=== PATIENT | male | born 1965 | race Caucasian/White ===

== ENCOUNTER 2018-01-25 12:35 | Emergency (ER) ==
[2018-01-25 12:39] VITALS: BP 121/84; TEMP 98.1; BMI 30.1
[2018-01-25] MEDS ORDERED: DUONEB NEB STA (13:17)
[2018-01-25] MEDS ORDERED: TUSSIONEX PO STA (13:20)
--- NOTE | 2018-01-25 14:16 | CT ---
EXAM: CT of the chest without contrast History: Cough. Comparison: Chest radiograph 08/09/2015 Technique: Multiplanar CT images through the thorax were obtained without the administration of IV c ontrast Findings: Heart size is normal. No pericardial effusion. Great vessels are unremarkable. No patholo gically enlarged thoracic lymph nodes. No consolidation. No pleural fluid and no pneumothorax. No l geno masses or lung nodules. Within the visualized upper abdomen, status post cholecystectomy. No acute osseous abnormalities. Impression: No acute intrathoracic process
--- NOTE | 2018-01-25 14:32 | ED.PDOC ---
General ED Provider: Dr. COTY AL Chief Complaint: Respiratory Complaint Stated Complaint: COUGH Time Seen by Physician: 12:40 (SEEN WITH OVI AT ALL TIMES ) Mode of Arrival: Walk-In Information Source: Patient Exam Limitations: No limitations [facility] Documentation Reviewed and Agree: Yes Does patient meet sepsis criteria?: No System Inflammatory Response Syndrome: Not Applicable Sepsis Protocol: For patient's 13 years and over: Temp is 96.8 and below OR 101 and greater Pulse >90 BPM Resp >20/minute Acutely Altered Mental Status Are patient's symptoms suggestive of a new infection, such as: -Pneumonia -Skin, Soft Tissue -Endocarditis -UTI -Bone, Joint Infection -Implantable Device -Acute Abdominal Infection -Wound Infection -Meningitis -Blood Stream Catheter Infection -Unknown Respiratory Complaint Exam - Respiratory Complaint/Exam Symptoms Are: Still present Timing: Intermittent Initial Severity: Moderate Current Severity: Mild Location: Nose, Throat, Chest Character: Reports: Non-productive cough Aggravating: Reports: None Alleviating: Reports: None Associated Signs and Symptoms: Reports: URI, Nasal congestion Related History: Reports: Similar episode History of Healthcare-Acquired Pneumonia: No Related Surgical History: Reports: None Pulmonary Embolism Risk Factors: None Cardiac Risk Factors: Reports: None Pseudomonas Risk Factors: Reports: None Tuberculosis Risk Factors: Reports: None Status Asthmaticus Risk Factors: Reports: None Home Oxygen Use: No Recent Stress Test: No Recent Echo/LV Function: No Current Antibiotic Use: No Current Asthma Medication Use: No Respiratory Distress: None Inadequate Respiratory Effort: No Dysphagia Present: No Stridor Present: No JVD Present: No Retractions: Not Present Diminished Breath Sounds: No Sinus Tenderness: None Grunting Respirations: No Kussmaul Respirations: No Differential Diagnoses: Pneumonia, Bronchitis Review of Systems - Review Of Systems Constitutional: Reports: No symptoms Eyes: Reports: No symptoms Ears, Nose, Mouth, Throat: Reports: No symptoms Respiratory: Reports: Cough Cardiac: Reports: No symptoms GI: Reports: No symptoms : Reports: No symptoms Musculoskeletal: Reports: No symptoms Skin: Reports: No symptoms Neurological: Reports: No symptoms Endocrine: Reports: No symptoms Hematologic/Lymphatic: Reports: No symptoms All Other Systems: Reviewed and Negative Past Medical History - Past Medical History Previously Healthy: Yes Endocrine: Reports: None Cardiovascular: Reports: None Respiratory: Reports: None Hematological: Reports: None Gastrointestinal: Reports: None Genitourinary: Reports: None Neuro/Psych: Reports: None Musculoskeletal: Reports: None Cancer: Reports: None - Surgical History General Surgical History: Reports: None - Family History Family History: Reports: None - Social History Smoking Status: Never smoker Hx Substance Use: No Alcohol Screening: None Physical Exam - Physical Exam Appearance: Well-appearing, No pain distress, Well-nourished Eyes: ZOIE, EOMI, Conjunctiva clear ENT: Ears normal, Nose normal, Oropharynx normal Respiratory: Airway patent, Breath sounds clear, Breath sounds equal, Respirations nonlabored Cardiovascular: RRR, Pulses normal, No rub, No murmur GI/: Soft, Nontender, No masses, Bowel sounds normal, No Organomegaly Musculoskeletal: Normal strength, ROM intact, No edema, No calf tenderness Skin: Warm, Dry, Normal color Neurological: Sensation intact, Motor intact, Reflexes intact, Cranial nerves intact, Alert, Oriented Psychiatric: Affect appropriate, Mood appropriate Interpretation - Radiology Interpretation Radiology Interpretation By: Radiologist Radiology Results: No acute changes Exam Interpreted: CT Scan Re-Evaluation - Re-Evaluation Time of Re-Evaluation: 14:00 Status: Improved Vital Signs Stable: Yes Pain Level: 0 Appearance: NAD Lungs: Clear Skin: Warm and Dry Neuro: Alert and Oriented X3 CV: RRR - Re-Evaluation Time of Re-Evaluation: 14:31 Status: Improved Vital Signs Stable: Yes Appearance: NAD Skin: Warm and Dry Neuro: Alert and Oriented X3 CV: RRR Critical Care Note - Critical Care Note Total Time (mins): 0 Course - Course Hematology/Chemistry: 01/25/18 13:20 01/25/18 13:20 Orders, Labs, Meds: Lab Review 01/25/18 01/25/18 01/25/18 13:20 13:20 13:21 WBC 9.13 RBC 5.06 Hgb 15.6 Hct 44.1 MCV 87.2 MCH 30.8 MCHC 35.4 RDW Coeff of [place] 13.6 Plt Count 292 Immature Gran % (Auto) 0.3 Neut % (Auto) 67.4 Lymph % (Auto) 19.9 [place] % (Auto) 8.5 Eos % (Auto) 3.2 Baso % (Auto) 0.7 Immature Gran # (Auto) 0.0 Neut # (Auto) 6.2 Lymph # (Auto) 1.8 [place] # (Auto) 0.8 Eos # (Auto) 0.3 Baso # (Auto) 0.1 Puncture Site R rad O2 Saturation 96.0 ABG pH 7.371 ABG pCO2 43.5 ABG pO2 87.0 ABG HCO3 25.2 ABG Total CO2 27 ABG Base Excess 0 [place] Test + FiO2 % 21.0 Sodium 142.0 Potassium 4.10 Chloride 107.0 Carbon Dioxide 27.0 Anion Gap 12.10 BUN 22.0 H Creatinine 1.00 Estimated GFR (MDRD) 78.00 BUN/Creatinine Ratio 22.00 Glucose 119.0 H Calcium 9.40 Total Bilirubin 0.70 AST 23.0 ALT 25.0 Alkaline Phosphatase 61.0 Total Protein 7.20 Albumin 4.30 Globulin 2.90 Albumin/Globulin Ratio 1.48 Orders Category Date Time Status ABG DRAW REQUEST Stat CARDIO 01/25/18 13:21 Completed NEBULIZER TREATMENT Stat CARDIO 01/25/18 13:17 Completed ABG Stat LAB 01/25/18 13:21 Completed CBC W/ AUTO DIFF Stat LAB 01/25/18 13:20 Completed COMPREHENSIVE METABOLIC PANEL Stat LAB 01/25/18 13:20 Completed Hydrocodone/Chlorphen Polis [Tussionex] MEDS 01/25/18 13:20 Discontinued 5 ml PO ONCE STA Ipratropium/Albuterol Neb [Duoneb] MEDS 01/25/18 13:17 Discontinued [address] vial NEB ONCE STA CT CHEST W/O CONTRAST Stat RADS 01/25/18 13:19 Completed Medications Discontinued Medications Generic Name Dose Route Start Last Admin Trade Name Chandraq PRN Reason Stop Dose Admin Albuterol/Ipratropium 1 vial 01/25/18 13:17 01/25/18 13:43 Duoneb NEB 01/25/18 13:18 1 vial ONCE STA Administration Chlorphenir/Hydrocodone Polistirex 5 ml 01/25/18 13:20 01/25/18 13:34 Tussionex PO 01/25/18 13:21 Not Given ONCE STA Vital Signs: Temp Pulse Resp BP Pulse Ox 01/25/18 12:35 98.1 F 86 20 121/84 96 Departure - Departure Time of Disposition: 14:32 Disposition: HOME SELF-CARE Discharge Problem: Cough Instructions: Cold Symptoms (ED), Acute Cough (ED) Condition: Good Pt referred to PMD for follow-up: Yes IPMP verified?: No Additional Instructions: Please call your Family Physician as soon as possible to schedule a follow-up appointment. Allergies/Adverse Reactions: Allergies No Known Allergies Allergy (Unverified 01/25/18 12:40) Home Medications: Ambulatory Orders Lisinopril 10 mg PO DAILY 01/25/18 Disposition Discussed With: Patient, Family
== END 2018-01-25 15:16 | disposition home or self-care (01) ==
LOC: ED 12:35
DX: R05 Cough (principal)
CPT/HCPCS: 36415; 80053; 82803; 85025; 94640; 99283